=== PATIENT | male | born 1985 | race Caucasian/White ===

== ENCOUNTER 2017-06-24 11:24 | Emergency (ER) | payer MEDICAID ==
[~2017-06-24] VITALS: Ht 182.9 cm; Wt 131.5 kg
--- NOTE | 2017-06-24 11:40 | NUR ---
PRESENTS TO ER C/O EPIGASTRIC PAIN AND DARK BLACK STOOL X 1 WEEK. DENIES N/V/D. A/OX 4. BREATHING EVEN AND UNLABORED. NO SOB. VITALS STABLE. SAFETY AND COMFORT MEASURES IN PLACE. AWAITING MD ORDERS.
[2017-06-24] MEDS ORDERED: BISM262O64 (11:43)
[2017-06-24] MEDS ORDERED: ESOM40CA PO (11:43)
[2017-06-24] MEDS ORDERED: IV NS 0.9% 1,000 ML BAG IV ONE ×2 (12:00→16:00)
[2017-06-24] MEDS ORDERED: ONDANSETRON HCL/PF 4 MG/2 ML VIAL IVP ONE (12:00)
[2017-06-24] MEDS ORDERED: FAMOTIDINE/PF INJ 20 MG/2 ML VIAL IV ONE ×2 (12:00→12:06)
--- NOTE | 2017-06-24 12:05 | NUR ---
NEW IV STARTED ON RAC, 18 G. BLOOD DRAWN AND SENT TO LAB.
[2017-06-24] MEDS ORDERED: ONDANSETRON HCL/PF 4 MG/2 ML VIAL ONE (12:06)
--- NOTE | 2017-06-24 12:10 | NUR ---
PATIENT MEDICATED PER MD ORDERS.
[2017-06-24 12:16] LABS: BASOPHILS # (AUTO) 0.1 /CMM (0.0-0.2); BASOPHILS % (AUTO) 0.8 % (0.0-2.0); EOSINOPHILS # (AUTO) 0.1 /CMM (0.0-0.7); EOSINOPHILS % (AUTO) 0.4 % (0.0-6.0); HEMATOCRIT 39 % (39-51); HEMOGLOBIN 13.4 g/dL (13.5-17.5); LYMPHOCYTES # (AUTO) 2.3 /CMM (0.8-4.8); LYMPHOCYTES % (AUTO) 13.6 % (20.0-44.0); MEAN CORPUSCULAR HEMOGLOBIN 28 PG (26.0-33.0); MEAN CORPUSCULAR HGB CONC 34 g/dl (31.0-36.0); MEAN CORPUSCULAR VOLUME 82 fL (80-96); MONOCYTES # (AUTO) 0.9 /CMM (0.1-1.30); MONOCYTES % (AUTO) 5.1 % (2.0-12.0); NEUTROPHILS # (AUTO) 13.9 /CMM (1.8-8.9); NEUTROPHILS % (AUTO) 80.1 % (43.0-81.0); PLATELET COUNT (AUTO) 406 /CMM (150-450); RDW COEFFICIENT OF VARIATION 14.1 (11.5-15.0); RED BLOOD CELL COUNT(AUTO) 4.82 MIL/uL (4.5-6.0); WHITE BLOOD COUNT (AUTO) 17.3 K/uL (4.3-11.0)
[2017-06-24 12:23] LABS: CALCIUM, SERUM 9.3 mg/dL (8.5-10.1); POTASSIUM 3.8 mmol/L (3.5-5.1)
[2017-06-24] MEDS ORDERED: IV NS 0.9% 250 ML IV ONE (12:31)
[2017-06-24] MEDS ORDERED: CT SWABBABLE VALVE TRANS SET 1 EA INFUS.SET MC ONE (12:31)
[2017-06-24] MEDS ORDERED: IOHEXOL-300 100 ML VIAL IV ONE (12:31)
--- NOTE | 2017-06-24 12:31 | NUR ---
PATIENT TAKEN TO CT VIA STRETCHER.
[2017-06-24 12:33] LABS: BILIRUBIN,DIRECT 0.1 mg/dL (0.0-0.2); BILIRUBIN,TOTAL 0.5 mg/dL (0.2-1.0); TOTAL PROTEIN, SERUM 8.6 g/dL (6.4-8.2)
--- NOTE | 2017-06-24 12:44 | NUR ---
PATIENT RETURNED FROM CT IN STABLE CONDITION.
--- NOTE | 2017-06-24 13:16 | NUR ---
CALLED DR ACEVES ON THE PHONE WITH DR WALLER.
[2017-06-24] MEDS ORDERED: DICY10CA13 PO (13:19)
[2017-06-24] MEDS ORDERED: ALLO100T PO (13:19)
[2017-06-24] MEDS ORDERED: VANCOMYCIN 1 GM in IV D5W 250 ML IV ONE (13:30)
[2017-06-24] MEDS ORDERED: PIPERACILLIN /TAZOBACTAM 3.375 G in IV D5W 50 ML IV ONE (13:30)
--- NOTE | 2017-06-24 13:37 | NUR ---
CALLED NURSING CLINICAL APPLICATION CONSULTANT ,REQUESTING A MS BED.
[2017-06-24 13:38] LABS: INR 1.19 (0.85-1.15)
[2017-06-24 13:40] LABS: ALANINE AMINOTRANSFERASE 41 U/L (12-78); ALBUMIN 2.5 g/dL (3.4-5.0); ALKALINE PHOSPHATASE 134 U/L (46-116); ASPARTATE AMINOTRANSFERASE 20 U/L (15-37); BILIRUBIN,DIRECT 0.2 mg/dL (0.0-0.2); BILIRUBIN,TOTAL 0.4 mg/dL (0.2-1.0); TOTAL PROTEIN, SERUM 7.3 g/dL (6.4-8.2)
[2017-06-24 13:43] LABS: TROPONIN I < 0.017 ng/mL (0.00-0.056)
--- NOTE | 2017-06-24 14:34 | NUR ---
CALLED [facility], DR WALLER ON THE PHONE WITH THEM.
--- NOTE | 2017-06-24 15:07 | NUR ---
CALLED [facility] , PRESENTED INFORMATION. FAXED OVER FACESHEET @
--- NOTE | 2017-06-24 15:07 | NUR ---
[facility] CALLED, WANTS FACESHEET AND IMAGING FAXED TO [phone]
--- NOTE | 2017-06-24 15:32 | NUR ---
[facility] CALLED AND PRESENTED VLADE TO CHIDI ACKERMAN, WAITING FOR A CALL BACK
--- NOTE | 2017-06-24 15:39 | NUR ---
[facility] CALLED, ER IS SATURATED PER BERTA OLGUIN
[2017-06-24] MEDS ORDERED: IV NS 0.9% 100 ML IV ONE (16:00)
--- NOTE | 2017-06-24 16:22 | NUR ---
PATIENT WAS ACCEPTED AT [facility] ICU BY SARAI DASH REPRODUCTION PRODUCTION MANAGER WILL CALL BACK WITH TRANSFER INFORMATION
[2017-06-24] MEDS ORDERED: MORPHINE SULFATE INJ 4 MG/ML DISP.SYRIN ONE (16:24)
[2017-06-24] MEDS ORDERED: MORPHINE SULFATE INJ 2 MG/ML DISP.SYRIN IV ONE (16:30)
--- NOTE | 2017-06-24 16:40 | NUR ---
ROXIE FROM [facility] CALLED PATIENT WILL BE GOING TO ICU [id number] NUMBER TO CALL TRANSFER CENTER.
--- NOTE | 2017-06-24 16:49 | NUR ---
CALLED [facility] FOR TRANSPORT, ETA OF 1930 WAS GIVEN. TRIP#[id number]
--- NOTE | 2017-06-24 18:25 | NUR ---
REPORT GIVEN TO NINA ACKERMAN AT [facility] FOR [facility] UPON TRANSFER.
[2017-06-24 18:41] LABS: APPEARANCE,URINE Clear (CLEAR); BILIRUBIN,URINE SMALL (NEGATIVE); BLOOD, URINE Negative Ery/uL (NEGATIVE); COLOR,URINE Orange (YELLOW); KETONES,URINE Negative (NEGATIVE); LEUKOCYTE ESTERASE ,URINE Negative (NEGATIVE); NITRITE, URINE Negative (NEGATIVE); PH,URINE 6.5 (5.0-8.0); PROTEIN,URINE 30 mg/dl (NEGATIVE); UGLUCOSE Negative (NEGATIVE); UROBILINOGEN,URINE >=8.0 EU/dL (0.2)
[2017-06-24 18:53] LABS: RBC,URINE 0-2 /HPF (0-2); WBC,URINE 0-2 /HPF (0-3)
[2017-06-24 18:54] LABS: BACTERIA,URINE Few /HPF (None Seen); MUCUS,URINE Moderate /LPF (None Seen); SQUAMOUS EPITHELIAL CELL,UR Few /HPF (None Seen); URINE AMORPHOUS URATE Few /HPF (None Seen)
--- NOTE | 2017-06-24 19:25 | NUR ---
REPORT GIVEN TO JAMEL ACKERMNA FOR [facility].
[2017-06-24 20:05] VITALS: BP 119/71
--- NOTE | 2017-06-24 20:06 | NUR ---
Endorsed care to ambulance transport. Patient remained alert and responsive. VSS. Nad noted on transfer.
== END 2017-06-24 20:08 | disposition short-term general hospital (02) ==
LOC: ER 11:27
DX: K63.1 Perforation of intestine (nontraumatic) (principal); R10.816 Epigastric abdominal tenderness; F41.9 Anxiety disorder, unspecified; M10.9 Gout, unspecified
CPT/HCPCS: 36415; 71045-TC; 80048-TC; 80076-TC; 81000-TC; 83605-TC; 83690-TC; 84484-TC; 85025-TC; 85730-TC; 87040-TC; 87086-TC; A4606; J2270; J2405; J2543; J3370; J3490; J7030; J7050; J7060; Q9967; Z7610